=== PATIENT | female | born 1980 | race Hispanic/Latino ===

== ENCOUNTER 2018-01-31 12:06 | Emergency (ER) | payer BC ==
[2018-01-31 12:06] VITALS: BMI 22.3
[2018-01-31] MEDS ORDERED: Sodium Chloride 0.9% 1,000 ML IV STA (12:33)
--- NOTE | 2018-01-31 12:41 | ED PDOC ---
Arrival/HPI - General Chief Complaint: Flu-like Symptoms Time Seen by Provider: 01/31/18 12:08 Historian: Patient, Family - History of Present Illness Narrative History of Present Illness (Text): 01/31/18 12:30 A 37 year old female, whose past medical history includes migraines, 2 Cesarian sections and appendectomy, presents to the emergency department complaining of body aches and throat pain. Patient reports visiting Dr. Childs for symptoms and was told of having possible dehydration. Notes also experiencing sensation of "head pounding." Patient denies has no other complaints. Denies any recent travel. 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 Patient also states already tested for strep throat, and results were negative. PMD: Dr. Childs Past Medical History - Provider Review Nursing Documentation Reviewed: Yes - Past Medical History Past Medical History: No Previous - Cardiac Hx Cardiac Disorders: No - Pulmonary Hx Respiratory Disorders: No - Neurological Hx Neurological Disorder: Yes Hx Migraine: Yes - HEENT Hx HEENT Disorder: No - Renal Hx Renal Disorder: No - Endocrine/Metabolic Hx Endocrine Disorders: No - Hematological/Oncological Hx Blood Disorders: No - Integumentary Hx Dermatological Disorder: No - Musculoskeletal/Rheumatological Hx Musculoskeletal Disorders: No - Gastrointestinal Hx Gastrointestinal Disorders: No - Genitourinary/Gynecological Hx Genitourinary Disorders: No - Psychiatric Hx Psychophysiologic Disorder: No Hx Substance Use: No - Surgical History Hx Appendectomy: Yes Hx Section: Yes - Anesthesia Hx Anesthesia: Yes Hx Anesthesia Reactions: No Hx Malignant Hyperthermia: No - Suicidal Assessment Feels Threatened In Home Enviroment: No Family/Social History - Physician Review Nursing Documentation Reviewed: Yes Family/Social History: No Known Family HX Smoking Status: Never Smoked Hx Alcohol Use: No Hx Substance Use: No Hx Substance Use Treatment: No Allergies/Home Meds Allergies/Adverse Reactions: Allergies cefuroxime [From Ceftin] Allergy (Verified 01/31/18 12:18) RASH Sulfa (Sulfonamide Antibiotics) Allergy (Verified 01/31/18 12:18) RASH Review of Systems - Physician Review All systems were reviewed & negative as marked: Yes - Review of Systems Constitutional: Other ("head pounding" sensation) ENT: Other (throat pain) Musculoskeletal: Myalgias Physical Exam - Physical Exam Narrative Physical Exam (Text): Constitutional: No acute distress. Head: Normocephalic. Atraumatic. Eyes: PERRL. ENT: Moist mucous membranes. Neck: Supple. Cardiovascular: Tachycardic. Chest: No tenderness. Respiratory: Clear to auscultation bilaterally. GI: Soft. Nontender. Nondistended. Back: No CVA tenderness. Musculoskeletal: No tenderness or swelling of extremities. Skin: No rash. Neurologic: Alert, no focal deficit. Vital Signs Temp Pulse Resp BP Pulse Ox 01/31/18 13:46 98.5 F 90 18 108/64 96 01/31/18 12:18 100.4 F H 113 H 17 131/77 99 Medical Decision Making ED Course and Treatment: 01/31/18 12:33 Impression: 37 year old female with body aches, throat pain, and "head pounding " sensation. Physical exam shows patient is tachycardic; otherwise overall no other acute findings on examination. Plan: -- Labs -- Tylenol -- Toradol -- IV Fluids -- Reassess and disposition Progress Notes: 01/31/18 13:54 Patient states she feels better after treatment. HR and temperature normalized. Advised continued PO fluids, ibuprofen, Zofran, tamiflu, f/u Dr. Childs and instructed to return to ED for worsening pain, stiff neck, weakness, dyspnea, or any other problem. - Lab Interpretations Lab Results: 01/31/18 13:00 01/31/18 13:00 Lab Results 01/31/18 13:00: Sodium 139, Potassium 3.5 L, Chloride 104, Carbon Dioxide 24, Anion Gap 15, BUN 7, Creatinine 0.7, Est GFR ( Amer) > 60, Est GFR (Non- Af Amer) > 60, Random Glucose 98, Calcium 9.1, Total Bilirubin 0.6, AST 19, ALT 29, Alkaline Phosphatase 62, Total Protein 7.6, Albumin 4.2, Globulin 3.4, Albumin/Globulin Ratio 1.2 01/31/18 13:00: WBC 13.6 H, RBC 4.37, Hgb 13.2, Hct 39.8, MCV 91.1, MCH 30.2, MCHC 33.2, RDW 13.1, Plt Count 219, MPV 10.9, Gran % 80.5 H, Lymph % (Auto) 9.2 L, [place] % (Auto) 10.2 H, Eos % (Auto) 0.0 L, Baso % (Auto) 0.1, Gran # 10.97 H, Lymph # (Auto) 1.3, [place] # (Auto) 1.4 H, Eos # (Auto) 0.0, Baso # (Auto) 0.02 I have reviewed the lab results: Yes - Medication Orders Current Medication Orders: Discontinued Medications Acetaminophen (Tylenol 325mg Tab) 650 mg PO STAT STA Stop: 01/31/18 12:36 Last Admin: 01/31/18 13:08 Dose: 650 mg Sodium Chloride (Sodium Chloride 0.9%) 1,000 mls @ 999 mls/hr IV .Q1H1M STA Stop: 01/31/18 13:33 Last Admin: 01/31/18 13:07 Dose: 999 mls/hr eMAR Start Stop Document 01/31/18 13:07 GMD (Rec: 01/31/18 13:07 [id number] Intravenous Solution Start Date 01/31/18 Start Time 13:07 End Date 01/31/18 End time 14:08 Total Infusion Time 61 Ketorolac Tromethamine (Toradol) 30 mg IVP STAT STA Stop: 01/31/18 12:35 Last Admin: 01/31/18 13:08 Dose: 30 mg MAR Pain Assessment Document 01/31/18 13:08 GMD (Rec: 01/31/18 13:08 [id number] Pain Reassessment Is this a pain reassessment? No Presence of Pain Presence of Pain Yes IVP Administration Document 01/31/18 13:08 GMD (Rec: 01/31/18 13:08 D [id number]) Charges for Administration # of IVP Administrations 1 Oseltamivir Phosphate (Tamiflu Cap) 75 mg PO STAT STA PRN Reason: Protocol Stop: 01/31/18 12:53 Last Admin: 01/31/18 13:30 Dose: 75 mg - Scribe Statement The provider has reviewed the documentation as recorded by the Saturninoibchiqui Fang Provider Scribe Attestation: All medical record entries made by the Saturninoibchiqui were at my direction and personally dictated by me. I have reviewed the chart and agree that the record accurately reflects my personal performance of the history, physical exam, medical decision making, and the department course for this patient. I have also personally directed, reviewed, and agree with the discharge instructions and disposition. Disposition/Present on Arrival - Present on Arrival Any Indicators Present on Arrival: No History of DVT/PE: No History of Uncontrolled Diabetes: No Urinary Catheter: No History of Decub. Ulcer: No History Surgical Site Infection Following: None - Disposition Have Diagnosis and Disposition been Completed?: Yes Diagnosis: Influenza-like illness Disposition: HOME/ ROUTINE Disposition Time: 13:55 Patient Plan: Discharge Condition: STABLE Discharge Instructions (ExitCare): Flu Prescriptions: Ondansetron ODT [Zofran ODT] 4 mg PO Q8 #12 odt Oseltamivir Phosphate [Tamiflu] 1 cap PO BID #9 capsule Referrals: Otilio Childs MD [Primary Care Provider] - Follow up with primary Forms: [facility] (Greek), WORK NOTE
[2018-01-31 13:27] LABS: BASO # 0.02 K/mm3 (0.0-2.0); BASO % 0.1 % (0.0-3.0); GRAN # 10.97 (1.4-6.5); GRAN % 80.5 % (50.0-68.0); HEMOGLOBIN 13.2 g/dL (12.0-16.0); LYMPH # 1.3 (1.2-3.4); LYMPH % 9.2 % (22.0-35.0); MEAN CELL VOLUME 91.1 fl (80.0-105.0); MEAN CORPUSCULAR HEMOGLOBIN 30.2 pg (25.0-35.0); MEAN CORPUSCULAR HGB CONC 33.2 g/dl (31.0-37.0); MEAN PLATELET VOLUME 10.9 fl (7.0-11.0); MONO # 1.4 (0.1-0.6); MONO % 10.2 % (1.0-6.0); RBC 4.37 10^6/uL (3.5-6.1); RED CELL DISTRIBUTION WIDTH 13.1 % (11.5-14.5); WHITE BLOOD COUNT 13.6 10^3/ul (4.5-11.0)
[2018-01-31 13:30] LABS: ALB/GLOB RATIO 1.2 (1.1-1.8); ALBUMIN 4.2 g/dL (3.0-4.8); ALT/SGPT 29 U/L (7-56); AST/SGOT 19 U/L (14-36); BLOOD UREA NITROGEN 7 mg/dL (7-21); CALCIUM 9.1 mg/dL (8.4-10.5); GFR AFRICAN-AMERICAN > 60; GFR NON-AFRICAN AMERICAN > 60
[2018-01-31 13:47] VITALS: BP 108/64; PULSE 90; RESP 18; TEMP 98.5; O2SAT 96
== END 2018-01-31 14:11 | disposition home or self-care (01) ==
LOC: ED 12:06
DX: J11.1 Influenza due to unidentified influenza virus with other respiratory manifestations (principal)
CPT/HCPCS: 80053; 85025; 96361; 96374; 99284; J1885; J7040